=== PATIENT | male | born 1960 | race Caucasian/White ===

== ENCOUNTER → 2021-03-12 01:10 | Outpatient (CLI) | payer OTHER, SELFPAY ==
[2021-03-12 19:38] LABS: SARS-CoV-2 RNA PCR Negative
== END ==
PROVIDERS: PCP Family Medicine; Visit Provider Internal Medicine Gastroenterology
DX: Z01.812 Encounter for preprocedural laboratory examination (principal); Z20.822 Contact with and (suspected) exposure to COVID-19
CPT/HCPCS: C9803; U0003; U0005

== ENCOUNTER 2021-03-16 00:25 | Day surgery (SDC) | payer OTHER, SELFPAY ==
[2021-03-03 14:53] VITALS: BMI 42.4
[2021-03-16 06:17] VITALS: BP 157/96; PULSE 92; RESP 16; TEMP 35.8; O2SAT 98; BMI 41.7
[2021-03-16] MEDS: LACTATED RINGERS 1,000 ML 150 ML IV CONT (06:35)
--- NOTE | 2021-03-16 07:00 | PM.HPGS ---
History of Present Illness History of Present Illness Consent: Risks, benefits, and alternatives have been discussed and questions answered. Patient agrees to proceed with procedure. Chief complaint: neoplasm screening hx of colon polyps Narrative: Aris Vinson Jr. is a 60 year old male here for colon cancer screening. He had 2 polyps removed about 8 years ago Review of Systems Review of Systems: All systems reviewed & are unremarkable except as noted in HPI and below PMFSH Social History Social History Smoking status: Never smoker Living arrangements: with family Gender identity (if verbalized by the patient): Male Spiritual care concerns: No Meds Home Medications and Allergies Home Medications Medication Instructions Recorded Confirmed Type allopurinol 100 mg PO DAILY 03/03/21 03/16/21 History baclofen 10 mg PO BID PRN 03/03/21 03/16/21 History hydrocodone-acetaminophen 1.5 tablet PO DAILY 03/03/21 03/16/21 History lisinopril-hydrochlorothiazide 1 tablet PO DAILY 03/03/21 03/16/21 History tamsulosin 0.4 mg PO DAILY 03/03/21 03/16/21 History Allergies Allergy/AdvReac Type Severity Reaction Status Date / Time No Known Allergies Allergy Verified 03/16/21 06:15 Vital Signs Vital Signs - 24 hr 03/16/21 06:17 Temperature 35.8 C L Pulse Rate 92 Respiratory Rate 16 Blood Pressure 157/96 H Pulse Oximetry 98 Exam Resp: Auscultation: clear to auscultation bilaterally Cardio: Rate: regular rate Rhythm: regular rhythm GI: GI Palp: Yes Soft to palpation and No Tenderness to palpation present (GI) Assessment and Plan Assessment and plan (1) Colon cancer screening: Code(s): Z12.11 - Encounter for screening for malignant neoplasm of colon Status: Acute Assessment and Plan: Colonoscopy with possible biopsy or polypectomy or cautery or injection of substances.
--- NOTE | 2021-03-16 07:10 | P.PNAN_ITS ---
Anes - Initial Pre Proc Eval Procedure: Operation Date: 03/16/21 07:30 Proposed Procedures p Screening Colonoscopy - Jamal Morocho MD Date/Time: 03/16/21 07:10 Surgeon: Jamal Morocho MD Pre Op Diagnosis: neoplasm screening hx of colon polyps Patient Data Age: 60 Gender: M Height: 5 ft 11 in Weight: 135.8 kg Last Vital Signs Temp 96.5 F L 03/16/21 06:17 Pulse 92 03/16/21 06:17 Resp 16 03/16/21 06:17 BP 157/96 H 03/16/21 06:17 Pulse Ox 98 03/16/21 06:17 Allergies Allergy/AdvReac Type Severity Reaction Status Date / Time No Known Allergies Allergy Verified 03/16/21 06:15 Home Medications Medication Instructions Recorded Confirmed Type allopurinol 100 mg PO DAILY 03/03/21 03/16/21 History baclofen 10 mg PO BID PRN 03/03/21 03/16/21 History hydrocodone-acetaminophen 1.5 tablet PO DAILY 03/03/21 03/16/21 History lisinopril-hydrochlorothiazide 1 tablet PO DAILY 03/03/21 03/16/21 History tamsulosin 0.4 mg PO DAILY 03/03/21 03/16/21 History Patient hx anesthesia problems: none Family hx anesthesia problems: none [facility] Past Medical History Medical History (Updated 03/16/21 @ 07:07 by Thompson aBrker MD) Hypertension STEPHANIE (obstructive sleep apnea) Social History Social History Smoking status: Never smoker Living arrangements: with family Gender identity (if verbalized by the patient): Male Spiritual care concerns: No Anes - Eval Final PreProcedure Day of Procedure 03/16/21 07:10 Patient weight: morbidly obese Heart: regular rate and rhythm Lungs: clear to auscultation Airway: Mallampati scale class II Neurological: alert and oriented Last oral intake: >/= 8 hours ASA classification: III Emergent: no Anesthetic plan: proceed Anesthesia type and monitoring: general GIVS and standard monitoring Informed Consent: The patient's anesthetic plan and its attendant risks and benefits were discussed with the patient/family/POA. Questions were solicited and answers provided to the satisfaction of the patient/family/POA.
[2021-03-16 07:50] VITALS: BP 140/86; PULSE 73; RESP 22; O2SAT 96
[2021-03-16 07:55] VITALS: BP 158/91; PULSE 72; RESP 22; O2SAT 99
--- NOTE | 2021-03-16 08:00 | PC.NURSE ---
pts bp 140s - 150s over 90s in postop. pt instructed to take his lisinopril as soon as he gets home. voiced understanding.
[2021-03-16 08:05] VITALS: BP 174/98; PULSE 70; RESP 15; O2SAT 99
== END 2021-03-16 08:12 | disposition home or self-care (01) ==
PROVIDERS: PCP Family Medicine; Visit Provider Internal Medicine Gastroenterology
PROC: 0DJD8ZZ Inspection of Lower Intestinal Tract, Via Natural or Artificial Opening Endoscopic (ICD-10-PCS; CPT 45378; principal; 2021-03-16 07:30)
DX: Z12.11 Encounter for screening for malignant neoplasm of colon (principal); K64.8 Other hemorrhoids; K64.4 Residual hemorrhoidal skin tags; Z86.010 Personal history of colon polyps; I10 Essential (primary) hypertension; G47.33 Obstructive sleep apnea (adult) (pediatric); E66.01 Morbid (severe) obesity due to excess calories; Z68.41 Body mass index [BMI] 40.0-44.9, adult
CPT/HCPCS: 45378; C9803; J2704; J7120; U0003; U0005